=== PATIENT | female | born 1940 | race Caucasian/White ===

== ENCOUNTER 2018-01-24 09:55 | Emergency (ER) | payer OTHER ==
[2018-01-24 10:06] VITALS: BP 154/83
--- NOTE | 2018-01-24 10:21 | EDPHY ---
H & P Time Seen by Provider: 01/24/18 10:05 HPI/ROS: CHIEF COMPLAINT: Left-sided facial pain, sinusitis HISTORY OF PRESENT ILLNESS: This is a 77-year-old female who has a history of having sinus infections. She had surgery on her left sinus a number of years ago and per her report has been buddhist about using saline washes to help minimize the frequency of sinus infections. She reports that she has developed left-sided facial pain which has been worsening despite her using Tylenol, ibuprofen, and nasal wash. In the past, amoxicillin has worked well to clear her sinusitis. She denies any fevers. No trauma to the face. Slight congestion and slight color discharge from the nose. No significant dental pain. No facial swelling noted. Patient is leaving town to drive to [place] and is concerned regarding her ongoing symptoms. Patient reports that there is "nothing" different about today's presentation when compared to prior episodes of sinusitis. REVIEW OF SYSTEMS: Aside from elements discussed in the HPI, a comprehensive 10-point review of systems was reviewed and is negative. PAST MEDICAL HISTORY: Sinusitis. Dr. Reid is primary care physician. SOCIAL HISTORY: Nonsmoker. VITAL SIGNS: see nurse's notes. GENERAL: Well-developed, well-nourished, in no acute distress. HEENT: Atraumatic. Tenderness to percussion across the left maxillary sinus and left frontal sinus. Eyes: PERRL, EOMI, no conjunctival injection. Ears: Right tympanic membrane normal. Left tympanic membrane retracted. Nose: No discharge. Mouth: moist mucous membranes. No dental caries. No swelling on the gum line. Pharynx: no erythema, no exudates, no swelling, no abscess. Uvula is midline. NECK: Supple, no adenopathy, no meningismus, no tenderness. Alert and oriented. Smoking Status: Former smoker Constitutional: Initial Vital Signs Temperature (C) 36.7 C 01/24/18 10:01 Heart Rate 77 01/24/18 10:01 Respiratory Rate 16 01/24/18 10:01 Blood Pressure 154/83 H 01/24/18 10:01 O2 Sat (%) 95 01/24/18 10:01 O2 Delivery Mode Room Air Allergies/Adverse Reactions: No Known Allergies Allergy (Verified 01/24/18 10:06) Home Medications: Medication Instructions Recorded Multiple Vitamin 06/12/14 Amoxicillin Trihydrate [Amoxil] 500 mg PO TID 10 Days cap 01/24/18 MDM/Departure - [facility] ED Course/Re-evaluation: Patient was given a prescription of Amoxil Delvin 500 mg to use three times daily. She understands importance of follow-up if she is not improving with the treatment. - Depart Disposition: Home, Routine, Self-Care Clinical Impression: Left facial pressure and pain Sinusitis Qualifiers: Sinusitis location: maxillary Chronicity: acute Recurrence: not specified as recurrent Qualified Code(s): J01.00 - Acute maxillary sinusitis, unspecified Condition: Good Instructions: Amoxicillin (By mouth), Sinusitis (ED) Additional Instructions: Please take antibiotics as directed. Continue to use the other supportive measures such as saline washes, decongestants, Tylenol and ibuprofen for pain. Follow up with Dr. Reid on your return if you're not improved. Be seen in the emergency department in [place] if you are worse despite the above treatment , especially if you run a fever, have a severe headache, developed neck pain, nausea, or vomiting. Have a good time in [place] and drive safely. Prescriptions: Amoxicillin Trihydrate [Amoxil] 500 mg PO TID 10 Days cap Referrals: Briana Reid MD [Primary Care Provider] - As per Instructions
== END 2018-01-24 10:30 | disposition home or self-care (01) ==
LOC: CED 09:55
DX: J01.00 Acute maxillary sinusitis, unspecified (principal); Z87.891 Personal history of nicotine dependence

== ENCOUNTER 2018-02-24 16:29 | Emergency (ER) | payer OTHER ==
[2018-02-24] MEDS ORDERED: ACETAMINOPHEN 500 MG TAB PO ONE (17:04)
--- NOTE | 2018-02-24 17:07 | EDPHY ---
H & P Time Seen by Provider: 02/24/18 16:32 HPI/ROS: CHIEF COMPLAINT: Right leg pain History by patient HISTORY OF PRESENT ILLNESS: 77-year-old woman with minimal past medical history presents complaining of severe pain behind her right knee. Patient developed some pain about a week ago for which she saw her orthopedist who did x -rays and told her that her bones looked good and she had no evidence of arthritis. The pain was persistent but not terrible. Patient was using topical emu cream and taking ibuprofen 3 times a day and then this afternoon while starting to walk up stairs the pain suddenly became very severe behind her right leg making it difficult to bear weight. She denies any trauma or new or unusual activity. She denies any leg swelling. She has no prior history of DVT or family history of VTE. Patient does not smoke or use hormones. She is also on gabapentin for pain from shingles. Patient denies any associated hip or back pain. She feels the pain in her posterior knee when she bears weight. REVIEW OF SYSTEMS: As in HPI, and all other systems reviewed and are negative Smoking Status: Never smoked Physical Exam: General Appearance: Alert and no distress. Head: Normocephalic, atraumatic Eyes: Pupils equal and round no injection. Extraocular movements are intact. Musculoskeletal: Neck is supple and nontender. Extremities: Right leg with no obvious deformity or swelling. Full range of motion of right hip. Decreased range of motion of right knee secondary to pain. Positive mild tenderness in popliteal fossa and distal hamstring area. Negative Homans sign. DP pulses 2+ and equal to the left. Full range of motion of full strength of ankle and toes. Distal sensation is intact. Skin: No rashes or lesions except as described above. Constitutional: Initial Vital Signs Temperature (C) 36.6 C 02/24/18 16:37 Heart Rate 66 02/24/18 16:37 Respiratory Rate 16 02/24/18 16:37 Blood Pressure 150/94 H 02/24/18 16:37 O2 Sat (%) 94 02/24/18 16:37 O2 Delivery Mode Room Air Allergies/Adverse Reactions: No Known Allergies Allergy (Verified 02/24/18 16:46) Home Medications: Medication Instructions Recorded Multiple Vitamin 06/12/14 Lidocaine [Lidoderm] 1 each TP DAILY PRN #30 adh..patch 02/24/18 MDM/Departure - [facility] Imaging Results: Imaging Impressions Extremity Venous Study 02/24/18 17:04 Impression: No deep venous thrombosis right leg. Small Shah's cyst. Results called to Valerie Fabian M.D., at 5:40 PM. Imaging: Discussed imaging studies w/ call center trainer Radiologist Medications Given: Discontinued Medications Acetaminophen (Tylenol) 1,000 mg PO EDNOW ONE Stop: 02/24/18 17:05 Last Admin: 02/24/18 17:08 Dose: 1,000 mg ED Course/Re-evaluation: 77-year-old woman presents with posterior right knee pain. The patient was at low risk for DVT I was also concerned about the possibility of a Shah cyst and therefore ultrasound was obtained which showed no evidence of DVT but did confirm diagnosis of Shah cyst. Patient was given Tylenol in the emergency department as well as ice with some improvement in her pain. I discussed home care and follow-up with the patient and her . - Depart Disposition: Home, Routine, Self-Care Clinical Impression: Shah's cyst of knee Qualifiers: Laterality: right Qualified Code(s): M71.21 - Synovial cyst of popliteal space [Shah], right knee Condition: Good Instructions: Bakers Cyst (ED) Additional Instructions: You were seen by Dr. Valerie Fabian today. Your ultrasound showed a Shah's cyst. This is a small sac of fluid behind the knee. You may put as much weight as you can tolerate on your leg. You will not make things worse by walking on it. I recommend an Lonnie bandage, regular icing and continuing year ibuprofen 4-600 mg 3 times a day as well as acetaminophen a 1000 mg 4 times a day if needed. Try also topical lidocaine patches Please follow-up with the orthopedic surgeon for further evaluation and treatment. Return for any worsening or new concerns. Prescriptions: Lidocaine [Lidoderm] 1 each TP DAILY PRN #30 adh..patch PRN Reason: pain Referrals: Briana Reid MD [Primary Care Provider] - As per Instructions
[2018-02-24 18:17] VITALS: BP 142/90
== END 2018-02-24 18:14 | disposition home or self-care (01) ==
LOC: CED 16:29
DX: M71.21 Synovial cyst of popliteal space [Baker], right knee (principal)
CPT/HCPCS: 93971-PO

== ENCOUNTER → 2018-05-08 | Outpatient (CLI) | payer OTHER | LOC: FIMAGING 12:53 | PROVIDERS: ATTEND Physician Assistant | DX: S83.231A Complex tear of medial meniscus, current injury, right knee, initial encounter (principal); M22.41 Chondromalacia patellae, right knee; M25.461 Effusion, right knee ==

== ENCOUNTER 2018-05-11 10:34 | Emergency (ER) | payer OTHER ==
--- NOTE | 2018-05-11 11:31 | EDPHY ---
H & P Time Seen by Provider: 05/11/18 10:48 HPI/ROS: CHIEF COMPLAINT: Cough, hoarse voice. HISTORY OF PRESENT ILLNESS: Patient states about a 1 and half weeks ago she had a fever to 100 degrees. Next day the fever was gone but she started to develop a dry cough. Also some left ear pain which has resolved. The cough has been persistent, worse at night, continues to be dry. She also developed laryngitis with loss of voice over the same time. As the cough. She denies chest pain although occasional soreness in her chest after coughing episodes. She has no shortness of breath. She has had no more fevers. She denies other symptoms including headache, rash, nausea, vomiting, diarrhea. She has tried several [id number] remedies including Mucinex, ibuprofen, cough drops and Benadryl. Contents of 10 point review of systems otherwise negative except for what is mentioned in HPI. General Appearance: Alert, no distress. Eyes: Pupils equal and round no icterus HEENT: Normal TMs bilaterally, oropharynx without edema, exudate. Mucous membranes moist. No lymphadenopathy. Respiratory: No respiratory distress, lungs clear to auscultation bilaterally, no wheezes. Cardiac: Regular rate and rhythm, no murmurs rubs or gallops. Neurological: Awake, alert, no focal deficits. Skin: Warm and dry, no rashes. Musculoskeletal: Neck is supple nontender. Normal movement all 4 extremities. Extremities are symmetrical, full range of motion, no edema. Psychiatric: Patient is oriented X 3, there is no agitation. Medical/surgical history: Surgical history includes tonsillectomy, uterine tumor removed. History of diverticulitis. Social history: Nonsmoker, no ETOH or drugs. Patient is a part-time teacher. Smoking Status: Never smoked Constitutional: Initial Vital Signs Temperature (C) 36.8 C 05/11/18 10:48 Heart Rate 84 05/11/18 10:48 Respiratory Rate 20 05/11/18 10:48 Blood Pressure 146/91 H 05/11/18 10:48 O2 Sat (%) 94 05/11/18 10:48 O2 Delivery Mode Room Air Allergies/Adverse Reactions: No Known Allergies Allergy (Verified 05/11/18 10:52) Home Medications: Medication Instructions Recorded Multiple Vitamin 06/12/14 predniSONE 40 mg PO DAILY #6 tab 05/11/18 Medical Decision Making Differential Diagnosis: Differential diagnosis includes but is not limited to upper respiratory infection, bronchitis, laryngitis, peritonsillar abscess, pneumonia. After evaluation no suspicion or indication of serious bacterial infection. Likely viral upper respiratory infection with laryngeal component worse symptom. Discussed multiple ways to relieve symptoms including salt water gargles and nasal saline washes. Robitussin, ibuprofen. Did write a prescription for 3 days of prednisone for laryngeal inflammation if patient not improving by the weekend. Has primary care for follow-up and return precautions reviewed. Stable for discharge. Departure - Departure Clinical Impression: Acute upper respiratory infection, Laryngitis Condition: Good Instructions: Laryngitis (ED), Upper Respiratory Infection (ED) Additional Instructions: Do salt water nasal washes and gargles as described. Also try Robitussin DM [id number] for cough, best used before bed. He may find relief with ibuprofen. Also pseudoephedrine for congestion as needed. Take the steroids if symptoms not improving by the weekend. Return to the emergency department if you have any serious symptoms like shortness of breath, inability to swallow , high fevers or other concerns. Referrals: Briana Reid MD [Primary Care Provider] - As per Instructions Prescriptions: predniSONE 40 mg PO DAILY #6 tab
[2018-05-11 11:42] VITALS: BP 141/91
== END 2018-05-11 11:36 | disposition home or self-care (01) ==
LOC: CED 10:34
DX: J06.9 Acute upper respiratory infection, unspecified (principal); J02.9 Acute pharyngitis, unspecified

== ENCOUNTER 2018-09-10 12:39 | Emergency (ER) | payer OTHER ==
--- NOTE | 2018-09-10 13:13 | EDPHY ---
H & P Time Seen by Provider: 09/10/18 12:44 HPI/ROS: CHIEF COMPLAINT: Bilateral ear pain History by patient HISTORY OF PRESENT ILLNESS: 77-year-old woman presents complaining of bilateral pain in her years which she describes as a pressure-like sensation, not throbbing or pounding. It has not affected her hearing. She says sometimes it feels like a whirring or sullivan of air in her ear and is sometimes just an ache. She denies ringing in her years. She tried Mucinex DM with no relief. She denies any associated URI symptoms, sinus congestion, postnasal drip for sore throat. Symptoms have been going on for about 2 weeks. She has never had them before. She has had sinus surgery several years ago. REVIEW OF SYSTEMS: As in HPI, and all other systems reviewed and are negative Smoking Status: Never smoked Physical Exam: General Appearance: Alert and no distress. Head: normocephalic, atraumatic, no sinus tenderness Eyes: Pupils equal and round no injection. Ears: TM bilateral OP: mucus membranes moist, [ ] tonsillar enlargement, [ ] exudates Neck: no meningismus, [ ] cervical nodes, no submandibular nodes Respiratory: Chest is nontender, lungs are clear to auscultation. No wheezes, rales, rhonchi Cardiac: regular rate and rhythm. S1, S2, no murmurs, gallops, rubs appreciated. Gastrointestinal: Abdomen is soft and nontender, no masses, bowel sounds normal. Musculoskeletal: Neck is supple and nontender. Extremities have full range of motion and are nontender. Skin: No rashes or lesions. Constitutional: Initial Vital Signs Temperature (C) 36.5 C 09/10/18 12:45 Heart Rate 72 09/10/18 12:45 Respiratory Rate 18 09/10/18 12:45 Blood Pressure 144/103 H 09/10/18 12:45 O2 Sat (%) 97 09/10/18 12:45 O2 Delivery Mode Room Air Allergies/Adverse Reactions: No Known Allergies Allergy (Verified 09/10/18 12:45) Home Medications: Medication Instructions Recorded Multiple Vitamin 06/12/14 Gabapentin 09/10/18 MDM/Departure - [facility] ED Course/Re-evaluation: 77-year-old woman presents with bilateral ear pain and pressure. There was a small piece of cerumen obscuring the left TM which I removed with a curette and then had a good view of the TM. There is no evidence of external otitis or otitis media. Patient does have scant fluid return ears will treat her with head congestion, pseudoephedrine. I recommend follow up with her primary care physician if these symptoms persist or worsen - Depart Disposition: Home, Routine, Self-Care Clinical Impression: Acute ear pain Qualifiers: Laterality: bilateral Qualified Code(s): H92.03 - Otalgia, bilateral Condition: Good Instructions: Earache (ED) Additional Instructions: You were seen by Dr. Valerie Fabian today. You have a small amount of fluid behind the eardrums. There is no evidence of infection. There is no evidence of wax impaction. I recommended trial of pseudoephedrine which she may get [id number] and take 60 mg every 6 hr except before bedtime. Please follow up with her primary care physician at [facility] if her symptoms do not improve with the pseudoephedrine or developing to new symptoms. Return for any worsening or new concerns. Referrals: Betty Gonzáles, DO [Primary Care Provider] - As per Instructions
[2018-09-10 13:28] VITALS: BP 149/69
== END 2018-09-10 13:28 | disposition home or self-care (01) ==
LOC: CED 12:39
PROC: F09Z3ZZ Cerumen Management Treatment (ICD-10-PCS; principal; 2018-09-10)
DX: H92.03 Otalgia, bilateral (principal)
CPT/HCPCS: 99283-ER